=== PATIENT | male | born 2000 | race Caucasian/White ===

== ENCOUNTER 2020-01-29 11:59 | Emergency (ER) | payer OTHER ==
[~2020-01-29] VITALS: Ht 175.3 cm; Wt 66.2 kg
[2020-01-29 11:59] VITALS: BP 109/59
[2020-01-29] MEDS ORDERED: PENI500T PO (12:35)
== END 2020-01-29 12:57 | disposition home or self-care (01) ==
LOC: M ED 11:59
DX: J02.0 Streptococcal pharyngitis (principal); F17.200 Nicotine dependence, unspecified, uncomplicated

== ENCOUNTER 2020-10-25 18:13 | Emergency (ER) | payer OTHER ==
[~2020-10-25] VITALS: Ht 180.3 cm; Wt 66.4 kg
[~2020-10-25 18:13] MED LIST: PENI500T PO
[2020-10-25 19:11] LABS: BASO # 0.1 10^3/uL (0.0-0.2); BASO % 1.2 % (0.0-1.0); EOS # 0.1 10^3/uL (0.0-0.5); EOS % 1.5 % (0.0-3.0); HEMATOCRIT 44.7 % (42.0-52.0); HEMOGLOBIN 15.5 g/dl (13.5-17.5); LYMPH # 1.9 10^3/uL (1.5-5.0); LYMPH % 28.4 % (24.0-44.0); MEAN CORPUSCULAR HEMOGLOBIN 31.1 pg (27.0-33.0); MEAN CORPUSCULAR HGB CONC 34.7 g/dl (32.0-36.5); MEAN CORPUSCULAR VOLUME 89.6 fl (80.0-96.0); MONO # 0.6 10^3/uL (0.0-0.8); MONO % 9.1 % (2.0-8.0); NEUTROPHILS # 3.9 10^3/uL (1.5-8.5); NEUTROPHILS % 59.3 % (36.0-66.0); PLATELET COUNT, AUTOMATED 280 10^3/uL (150-450); RED BLOOD COUNT 4.99 10^6/uL (4.30-6.10); WHITE BLOOD COUNT 6.6 10^3/uL (4.0-10.0)
[2020-10-25 19:32] LABS: AMPHETAMINES LEVEL URINE NEGATIVE (NEGATIVE); BARBITURATES URINE NEGATIVE (NEGATIVE); BENZODIAZEPINES URINE NEGATIVE (NEGATIVE); CANNABINOIDS URINE NEGATIVE (NEGATIVE); COCAINE METABOLITE URINE NEGATIVE (NEGATIVE); METHADONE URINE NEGATIVE (NEGATIVE); OPIATES URINE NEGATIVE (NEGATIVE); PHENCYCLIDINE URINE NEGATIVE (NEGATIVE)
[2020-10-25] MEDS ORDERED: KCL 10MEQ/100ML SWI (KRUN) 10 MEQ in IV 1 EA IV ONE (19:50)
[2020-10-25] MEDS ORDERED: NS 1,000 ML IV ONE (19:50)
[2020-10-25] MEDS ORDERED: POTASSIUM CHLORIDE 10 MEQ SR TABLET PO ONE (20:00)
--- NOTE | 2020-10-25 20:17 | REP ---
INDICATION: palpitations. COMPARISON: No comparison chest x-ray. TECHNIQUE: Portable upright AP chest radiograph. FINDINGS: The lungs are well inflated and free of infiltrate. Pleural angles are sharp. Heart size is normal. Pulmonary vasculature is not increased. EKG monitoring electrodes overlie the chest. IMPRESSION: No active disease. <Electronically signed by Elian Bolanos > 10/25/202012
[2020-10-25 22:52] VITALS: BP 126/69
--- NOTE | 2020-10-26 20:36 | ECGEPIP ---
[facility] - ED Test Date: 2020-10-25 Pat Name: MERCEDES ESPITIA Department: Room: - Gender: Male [employer]: MINH : 2000 Requested By: Jeimy Cruz Order Number: [id number] Reading MD: Sebastian Perez Measurements Intervals Slaughters Rate: 62 P: 31 OR: 126 QRS: 71 QRSD: 92 T: 50 QT: 422 QTc: 428 Interpretive Statements Normal sinus rhythm with sinus arrhythmia POOR R WAVE PROGRESSION NO PRIORS FOR COMPARISON Electronically Signed on 10-26-2020 20:36:15 EDT by Sebastian Perez
== END 2020-10-25 22:55 | disposition home or self-care (01) ==
LOC: M ED 18:13
DX: R00.2 Palpitations (principal); E87.6 Hypokalemia; F17.290 Nicotine dependence, other tobacco product, uncomplicated